=== PATIENT | female | born 2000 | race Caucasian/White ===

== ENCOUNTER 2019-09-27 12:55 | Emergency (ER) | payer OTHER, SELFPAY ==
[2019-09-27 13:29] VITALS: BP 123/78; PULSE 55; RESP 17; TEMP 36.8; O2SAT 100
[2019-09-27 14:01] LABS: Bacteria Urine None Seen
[2019-09-27 14:13] LABS: Culture Indicated Urine Cult Not Indicated; RBC Urine 1-5/HPF (0-5/HPF); Squamous Epithelial Cell Urine None Seen (0-5/HPF); WBC Urine 1-5/HPF (0-5/HPF)
--- NOTE | 2019-09-27 17:28 | ED.GENADULT ---
HPI - General Adult General Chief complaint: Urogenital-Female Stated complaint: Possible UTI, Sent From [facility] Time Seen by Provider: 09/27/19 17:27 Source: patient Mode of arrival: Family Vehicle Limitations: no limitations History of Present Illness HPI narrative: 19-year-old otherwise healthy woman presents with dysuria for approximately 3 days. No flank pain no fevers she notes some slight red vaginal discharge after finishing her menses a couple of days ago. She has a single stable monogamous sexual partner. No other complaints or concerns. She has had no vomiting, diarrhea, cough, chills, lower extremity edema Related Data Previous Rx's Medication Instructions Recorded albuterol sulfate 90 mcg/actuation 1 inhalation INHALATION Q6H PRN 02/11/18 aerosol inhaler #6.7 gram fluticasone propionate 50 1 spray NASAL DAILY #19.8 gram 02/11/18 mcg/actuation nasal spray,suspension guaifenesin 400 mg tablet 200 mg PO Q4H PRN #30 tab MDD 2400 02/11/18 mg/day Allergies Allergy/AdvReac Type Severity Reaction Status Date / Time No Known Allergies Allergy Uncoded 09/27/19 13:32 Review of Systems Review of Systems Narrative: Denies ? fever ? cough ? cold ? chills ? chest pain ? dyspnea ? orthopnea ? wheezing ? abdominal pain ? change to bowel or bladder habits ? nausea vomiting ? skin changes ? 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 Inner labia are unremarkable without any discharge or irritation. Just to the right side of her clitoral tafoya there is an approximately 0.5 cm area of mucosal irritation that looks more like mechanical abrasion. There is no erythema or vesicular lesions to suggest a herpetic lesion. As it has only been bothering her 24 hours and she has never had a history of herpes I would expect much more symptomatic findings. Initial Vital Signs Initial Vital Signs: Vital Signs Temperature 98.3 F 09/27/19 13:29 Pulse Rate 55 L 09/27/19 13:29 Respiratory Rate 17 09/27/19 13:29 Blood Pressure 123/78 09/27/19 13:29 Pulse Oximetry 100 09/27/19 13:29 Course Orders Ordered: Discontinued Medications Bacitracin (Bacitracin) 1 applic TOP NOW ONE Stop: 09/27/19 17:59 Bacitracin (Bacitracin) 5 applic TOP NOW ONE Stop: 09/27/19 18:09 Vital Signs Vital signs: Vital Signs - 8 hr 09/27/19 13:29 Temperature 98.3 F Pulse Rate 55 L Respiratory Rate 17 Blood Pressure 123/78 Pulse Oximetry 100 Medical Decision Making Medical Records Medical records reviewed: Yes I reviewed the patient's medical records. Lab Data Lab results reviewed: Yes I reviewed the patient's lab results. Lab results narrative: Gonorrhea, chlamydia, Trichomonas, yeast, bacterial vaginosis are all ruled out Labs: Lab Results 09/27/19 09/27/19 Range/Units 13:42 13:42 Urine RBC 1-5/hpf (0-5/HPF) Urine WBC 1-5/hpf (0-5/HPF) Ur Squamous Epith Cells None seen (0-5/HPF) Urine Bacteria None seen (None) Ur Culture Indicated? Cult not indicated Ur Chlamydia DNA (PCR) Not detected N gonorrhoeae DNA (PCR) Not detected Point of Care Testing Test Results Negative Urine Dip Bedside Urine Glucose Negative Bedside Urine Bilirubin - Negative Bedside Urine Ketone - Negative Urine Specific [place] 1.010 Bedside Urine Occult Blood ++ Bedside Urine pH 6.5 Bedside Urine Protein - Negative Bedside Urine Urobilinogen - Negative Bedside Urine Nitrite - Negative Bedside Urine Leukocytes - Negative Esterase Point of care testing: Point of Care Testing Test Results Negative Urine Dip Bedside Urine Glucose Negative Bedside Urine Bilirubin - Negative Bedside Urine Ketone - Negative Urine Specific [place] 1.010 Bedside Urine Occult Blood ++ Bedside Urine pH 6.5 Bedside Urine Protein - Negative Bedside Urine Urobilinogen - Negative Bedside Urine Nitrite - Negative Bedside Urine Leukocytes - Negative Esterase MDM Narrative Medical decision making narrative: 19-year-old young woman who likely has simply mechanical irritation after consensual sex yesterday that is causing dysuria. There is no evidence of a UTI. No evidence of herpes. [place] gonorrhea chlamydia are all sent and patient will be contacted with results. In the meantime will simply use some bacitracin topically and some time to allow the area to heal 09/28/2019 920 patient is called at [phone] to let her know that all test results are negative. Discharge Plan Departure Patient Disposition: Home Clinical Impression: Vaginal irritation Discharge Date/Time: 09/27/19 18:34 Instructions: How to Detect and Treat STDs Activity Restrictions/Additional Instructions: Thank you for coming in today. You do not have a bladder infection. There is no significant vaginal discharge. I will call you tomorrow to let you know if you has a yeast infection or bacterial vaginitis. There is an area of just superficial irritation over your clitoral tafoya that likely is causing your symptoms. This does not look like herpes and I suspect probably distal small scratch related to sexual activity that likely will heal nicely. I would suggest some topical antibiotic ointment to the area simply to help soothe the area and make sure it does not burn when you do pee. I would expect it to heal within 24-48 hours. I hope you feel better shortly Prescriptions: No Action guaifenesin 400 mg tablet 200 mg PO Q4H MDD 2400 mg/day PRN (Reason: cold symptoms) Qty: 30 RF: 0 albuterol sulfate 90 mcg/actuation HFA aerosol inhaler 1 inhalation INHALATION Q6H PRN (Reason: cough) Qty: 6.7 RF: 0 fluticasone propionate 50 mcg/actuation spray,suspension 1 spray NASAL DAILY Qty: 19.8 RF: 0 Referrals: Jennifer Logan MD [Primary Care Provider] -
[2019-09-27 21:02] LABS: Urine N gonorrhoeae NOT DETECTED
[2019-09-27 21:19] LABS: Urine Chlamydia NOT DETECTED
== END 2019-09-27 18:34 | disposition home or self-care (01) ==
PROVIDERS: Emergency Provider Emergency Medicine
DX: N89.8 Other specified noninflammatory disorders of vagina (principal)
CPT/HCPCS: 81003; 81015; 81025; 87210; 87491; 87591; 99282